=== PATIENT | female | born 1980 | race Caucasian/White ===

== ENCOUNTER 2017-07-21 15:56 | Emergency (ER) | payer MEDICAID, SELFPAY | END 2017-07-21 17:28 | disposition home or self-care (01) | PROVIDERS: Emergency Provider Nurse Practitioner; Family Provider Emergency Medicine; Visit Provider Nurse Practitioner | DX: H10.33 Unspecified acute conjunctivitis, bilateral (principal) | CPT/HCPCS: 99201 ==

== ENCOUNTER 2017-08-09 20:08 | Emergency (ER) | payer MEDICAID, SELFPAY ==
[2017-08-09 20:33] VITALS: BP 116/56; PULSE 91; RESP 18; TEMP 36.7; O2SAT 99; BMI 16.2
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
== END 2017-08-09 22:06 | disposition home or self-care (01) ==
PROVIDERS: Emergency Provider Emergency Medicine; Family Provider Emergency Medicine
DX: S01.111A Laceration without foreign body of right eyelid and periocular area, initial encounter (principal); W00.0XXA Fall on same level due to ice and snow, initial encounter; Y92.014 Private driveway to single-family (private) house as the place of occurrence of the external cause; F17.210 Nicotine dependence, cigarettes, uncomplicated
CPT/HCPCS: 12011; 99282

== ENCOUNTER 2020-02-12 20:01 | Emergency (ER) | payer MEDICAID, SELFPAY ==
[2020-02-12 20:17] VITALS: PULSE 96; RESP 16; TEMP 36.7; O2SAT 100; BMI 23.6
--- NOTE | 2020-02-12 20:35 | HMH.EDUTC ---
[facility] Disposition Clinical Impression: Acute gastroenteritis Disposition: Home, Self-Care Condition on Discharge: Good Instructions: Viral Gastroenteritis, DI for Viral Gastroenteritis -- Adult Additional Instructions: Drink plenty of fluids. Take tylenol or ibuprofen for pain or fever. Take the medications as directed. Follow up with your regular doctor. GO TO THE ER FOR ANY WORSENING SYMPTOMS Prescriptions: Ondansetron [Zofran 4mg ODT] 4 mg PO Q8HP PRN #20 tab.rapdis PRN Reason: Nausea Transmission Status: Pending to [facility] Referrals: Gabriele Kirkpatrick MD [Primary Care Provider] - Forms: Work/School Release Medical Decision Making - Medical Records Medical records reviewed: No: I reviewed the patient's medical records. - Diego Inquiry Pt receiving controlled substance: No Vital Signs: 02/12/20 20:17 Temperature 98.1 F Temperature Source Oral Pulse Rate [Right] 96 H Respiratory Rate 16 02 Sat by Pulse Oximetry 100 Oxygen Delivery Method Room Air [facility] HPI - General Stated complaint: throwing up, weak Time Seen by Provider: 02/12/20 20:20 Mode of Arrival: Ambulatory Source of Information: Patient Limitations: No Limitations Description of Symptoms (Recalled from Triage Doc. by RN): pt c/o n/v that has been ongoing for a couple of days. Feels like her abd is burning HEENT Symptoms (Recalled from RN notes): No Resp Symptoms (Recalled from RN notes): No Skin Symptoms (Recalled from RN notes): No MS Symptoms (Recalled from RN notes): No Functional Status (Recalled from RN notes): na - History of Present Illness Provider Complaint: She c/o n/v/d for the past 4 days or so. She denies any fever, cough or abdominal pain. She was around other people with a stomach virus before her symptoms started. - Related Data Previous Rx's Medication Instructions Recorded Ondansetron [Zofran 4mg ODT] 4 mg PO Q8HP PRN #20 tab.rapdis 02/12/20 Allergies Allergy/AdvReac Type Severity Reaction Status Date / Time No Known Allergies Allergy Verified 02/12/20 20:21 - Worker's Comp Is this a Worker's Comp case?: No [facility] History - Hepatitis A Screen Drug use history?: No High risk sexual behaviors?: No History of sexually transmitted infection?: No Currently employed?: Yes Childcare worker?: No Do you have indoor plumbing?: Yes Do you have electricity?: Yes Attestation statement:: This patient has been screened for Hepatitis A risk factors. I have reviewed the patient's past medical history: Yes - Social History Smoking Status: Current every day smoker Tobacco Type: cigarettes # Packs/Day (cigarettes): 1 Alcohol Intake: never Occupational Status: employed ROS Obtained: Yes All systems reviewed & no additional complaints - Constitutional Constitutional: Denies chills, Denies fever(s) - Eyes Eyes: Denies eye discharge - ENT Ears, Nose, Mouth, and Throat: Denies dizziness, Denies otalgia, Denies sore throat - Cardiovascular Cardiovascular: Denies chest pain - Respiratory Respiratory: No chest congestion, No cough, No dyspnea, No coughing up blood, No stridor, No wheezing - Gastrointestinal Gastrointestingal: Reports: as per HPI - Genitourinary Female Genitourinary: Denies dysuria, Denies urinary frequency, Denies urinary urgency - Musculoskeletal Musculoskeletal: Denies back pain - Integumentary/Breasts Skin/Breast: Denies rash Physical Exam - General General appearance: alert, in no apparent distress - Head Head exam: atraumatic, normocephalic, normal inspection - Eye Eye exam: Present: normal appearance, PERRL, EOMI - ENT ENT exam: Present: normal exam, normal oropharynx, mucous membranes moist, TM's normal bilaterally, normal external ear exam - Neck Neck exam: Present: normal inspection, full ROM, trachea midline. Absent: meningismus, lymphadenopathy - Chest Chest inspection: Present: normal inspection, symmetr
[2020-02-12 20:59] VITALS: BP 132/70; PULSE 74; RESP 16; TEMP 36.6; O2SAT 98
== END 2020-02-12 20:59 | disposition home or self-care (01) ==
PROVIDERS: Emergency Provider Nurse Practitioner Family; PCP Emergency Medicine
DX: K52.9 Noninfective gastroenteritis and colitis, unspecified (principal); F17.210 Nicotine dependence, cigarettes, uncomplicated
CPT/HCPCS: 99201

== ENCOUNTER 2020-03-31 16:25 | Emergency (ER) | payer MEDICAID, SELFPAY ==
[2020-03-31 16:26] VITALS: BP 125/74; PULSE 95; RESP 18; O2SAT 100; BMI 18.4
--- NOTE | 2020-03-31 16:43 | CT_ITS ---
PROCEDURE: CT ABDOMEN PELVIS W CON CLINICAL INDICATION: rlq pain Abdominal pain, nausea and vomiting, diarrhea, right lower quadrant pain COMPARISON: CT ABDPELW/O CT ABD PELVIS W/O CONTRAST from 09/07/2015 TECHNIQUE: IV Contrast: 75ML OPTIRAY 350 Oral Contrast None Axial images obtained with sagittal and coronal reformats. All CT scans at the facility use one or more dose reduction, viz: automated exposure control, ma/kV adjustment per patient size (including targeted exams where dose is matched to indication, i.e. head), or iterative reconstruction technique. FINDINGS: LOWER THORAX: No acute finding ABDOMEN & PELVIS: The liver, gallbladder, spleen, adrenal glands, and pancreas have an unremarkable appearance. There are punctate renal calculi in the lower pole on the left measuring 2 and 3 mm. No ureteral calculus. No hydronephrosis. No evidence of appendicitis. Multiple unopacified bowel loops in the abdomen or pelvis which could obscure or mimic pathology. If symptoms persist, consider repeat exam with IV and oral contrast.. No intestinal obstruction or free air. Prior hysterectomy. Spondylitic spondylolisthesis L5 on S1 grade 1. No acute bony findings. IMPRESSION: 1. Nonobstructing left nephrolithiasis. 2. Spondylitic spondylolisthesis of L5 on S1 Dictated by: Dino Taylor MD 04/01/2020 07:09 Dino Taylor MD in [place] 04/01/2020 07:09
[2020-03-31 16:51] LABS: Microscopic, Urine URINE MICROSCOPIC (MICROSCOPIC)
[2020-03-31 16:52] LABS: Appearance,Urine CLEAR (Clear); Bilirubin,Urine Negative (Negative); Blood, Urine Negative (Negative); Color,Urine YELLOW (Yellow); Glucose,Urine (UA) Negative (Negative); Ketones,Urine Negative (Negative); Leukocyte Esterase,Urine Negative (Negative); Nitrate,Urine Negative (Negative); PH,Urine 7.5 (5.0-8.5); Protein,Urine Negative (Negative)
[2020-03-31 17:02] LABS: Squamous Epithelial Cell,Urine Occasional #/hpf (0-5)
[2020-03-31 17:27] LABS: Basophils % 0.5 % (0.1-2.0); Chloride 107 mmol/L (98-107); Eosinophils # 0.2 K/mm3 (0.0-0.4); Eosinophils % 1.9 % (0.1-12.0); Hematocrit 41.5 % (37.0-47.0); Lymphocytes # 2.6 K/mm3 (0.7-4.5); Lymphocytes % 32.6 % (10-50); Mean Corpuscular HGB Conc 33.7 g/dL (31.8-35.4); Mean Corpuscular Hemoglobin 31.3 pg (27.0-31.2); Mean Platelet Volume 7.6 fl (7.4-10.4); Monocytes # 0.3 K/mm3 (0.1-1.0); Neutrophils % 61.1 % (37.0-80.0); Platelet Count 392 K/mm3 (142-424); Red Blood Count 4.46 M/mm3 (4.20-5.40); Red Cell Distribution Width 12.9 % (11.5-17.5); Sodium 142 mmol/L (136-145); White Blood Count 8.1 K/mm3 (4.8-10.8)
[2020-03-31 17:30] LABS: Alanine Aminotransferase 28 U/L (12-78); Albumin Level 4.5 g/dl (3.5-5.0); Albumin/Globulin Ratio 1.5 (1.1-1.8); Alkaline Phosphatase 81 U/L (38-126); Aspartate Amino Transferase 31 U/L (14-36); Bilirubin,Total 0.4 mg/dl (0.2-1.3); Blood Urea Nitrogen 9 mg/dl (7-17); Calcium 9.5 mg/dl (8.4-10.2); Carbon Dioxide 26 mmol/L (22.0-30.0); Creatinine Clearance Estimated 110 mL/min (50-200); Estimated Glomerular Filt Rate 110 ml/min (>60); GFR (African American) 133 ML/MIN (>60); Glucose 102 mg/dl (74-100); Total Protein,Serum 7.5 g/dl (6.3-8.2)
[2020-03-31 17:31] LABS: Lipase 50 U/L (23-300)
--- NOTE | 2020-03-31 18:27 | US_ITS ---
PROCEDURE: US TRANSVAGINAL CLINICAL INDICATION: rlq pain Intermittent right lower quadrant pain, right-sided pelvic pain COMPARISON: No exams were available for comparison FINDINGS: There has been a prior hysterectomy. The left ovary measures 3 x 1.4 cm and has an unremarkable appearance with blood flow noted and a few small follicles. The right ovary is 4 x 2 cm with blood flow noted with small follicles present the largest measuring approximately 2 cm. No cul-de-sac fluid apparent. IMPRESSION: Prior hysterectomy. Small bilateral ovarian follicles with simple cyst on the right measuring up to 2 cm Dictated by: Dino Taylor MD 04/01/2020 07:16 Dino Taylor MD in [place] 04/01/2020 07:16
--- NOTE | 2020-03-31 18:28 | HMH.EDABDPAI ---
ED Disposition Condition on Discharge: Undetermined - Critical Care Critical Care Time: No <Gregg Thornton - Last Filed: 03/31/20 20:04> Condition on Discharge: Fair Time of Disposition: 21:09 - Critical Care Critical Care Time: No <Abdirashid Burns - Last Filed: 03/31/20 21:14> Clinical Impression: Abdominal pain Qualifiers: Abdominal location: right lower quadrant Qualified Code(s): R10.31 - Right lower quadrant pain Disposition: Home, Self-Care Instructions: DI for Acute Abdomen Additional Instructions: Tests showed you have an ovarian cyst on the right. All other tests came back normal. We are sending you home with Zofran for nausea and Bentyl for abdominal cramps. Please follow up with your PCP Prescriptions: Dicyclomine HCl [Bentyl 10mg capsule] 10 mg PO TID PRN #10 cap PRN Reason: Cramping Transmission Status: Pending to [facility] Ondansetron [Zofran 4mg ODT] 4 mg PO NEEDED PRN 10 Days #14 tab.rapdis PRN Reason: Nausea Transmission Status: Pending to [facility] Referrals: Jose De La Vega APRN [Primary Care Provider] - Forms: Work/School Release Attestation: On 03/31/20, the high probability of a clinically significant, sudden or life threatening deterioration of the following system(s) required my full and direct attention, intervention and personal management. The time I documented below is in addition to time spent performing reported procedures but includes the following listed in this critical care notation. Medical Decision Making - Medical Records Medical records reviewed: Yes: I reviewed the patient's medical records. - Diego Sultana Pt receiving controlled substance: No - Lab Data Result diagrams: 03/31/20 17:13 03/31/20 17:13 <Gregg Thornton - Last Filed: 03/31/20 20:04> - Medical Records MR Comment: Took over patient from dr Gregg Thornton; Work up essentially came back negative except for ovarian cyst on the right side. We are discharging her home in stable condition with prescriptions for Zofran and Bentyl. - Diego Sultana Pt receiving controlled substance: No - Lab Data Result diagrams: 03/31/20 17:13 03/31/20 17:13 <Abdirashid Burns - Last Filed: 03/31/20 21:14> Vital Signs: 03/31/20 16:26 03/31/20 19:05 Temperature Source Oral Pulse Rate [Left Radial] 95 H 79 Respiratory Rate 18 18 Blood Pressure [Left Arm] 125/74 99/58 L Blood Pressure Mean [Left Arm] 91 71 Blood Pressure Source [Left Arm] Automatic Cuff Automatic Cuff Blood Pressure Position [Left Arm] Sitting Sitting 02 Sat by Pulse Oximetry 100 100 Oxygen Delivery Method Room Air - Lab Data Lab Results 03/31/20 16:45: Urine Color Yellow, Urine Appearance Clear, Urine pH 7.5, Ur Specific [place] 1.020, Urine Protein Negative, Urine Glucose (UA) Negative, Urine Ketones Negative, Urine Blood Negative, Urine Nitrate Negative, Urine Bilirubin Negative, Urine Urobilinogen 1.0, Ur Leukocyte Esterase Negative, Urine WBC 3-5, Ur Squamous Epith Cells Occasional 03/31/20 17:13: WBC 8.1, RBC 4.46, Hgb 14.0, Hct 41.5, MCV 93.0, MCH 31.3 H, MCHC 33.7, RDW 12.9, Plt Count 392, MPV 7.6, Neut % (Auto) 61.1, Lymph % (Auto) 32.6, [place] % (Auto) 4.0, Eos % (Auto) 1.9, Baso % (Auto) 0.5, Neut # (Auto) 5.0, Lymph # (Auto) 2.6, [place] # (Auto) 0.3, Eos # (Auto) 0.2, Baso # (Auto) 0.0 03/31/20 17:13: Sodium 142, Potassium 4.0, Chloride 107, Carbon Dioxide 26, Anion Gap 13.0, BUN 9, Creatinine 0.60, Estimated Creat Clear 110, Estimated GFR 110, Est GFR ( Amer) 133, Glucose 102 H, Calcium 9.5, Total Bilirubin 0.4, AST 31, ALT 28, Alkaline Phosphatase 81, Total Protein 7.5, Albumin 4.5, Globulin 3.0, Albumin/Globulin Ratio 1.5 03/31/20 17:13: Lipase 50 Orders (Tests/Meds): ED MEDICATIONS Discontinued Medications Generic Name Dose Route Start Last Admin Trade Name Freq PRN Reason Stop Dose Admin Ioversol 75 ml 03/31/20 17:48 03/31/20 17:48 Rad-Optiray 350 100ml Vial IV
--- NOTE | 2020-03-31 18:36 | PC.NURSE ---
notified rad of ultrasound order
--- NOTE | 2020-03-31 18:53 | PC.NURSE ---
ULTRASOUND CALLED IN FOR TRANSVAGINAL ULTRASOUND.
[2020-03-31 19:05] VITALS: BP 99/58; PULSE 79; RESP 18; O2SAT 100
--- NOTE | 2020-03-31 19:45 | PC.NURSE ---
report received from clinical support tech. given to
--- NOTE | 2020-03-31 19:47 | INFXCTL.NOTE ---
return from ultrasound. placed back on monitor
[2020-03-31 21:17] VITALS: BP 105/54; PULSE 89; RESP 16; TEMP 36.8; O2SAT 100
[2020-03-31 21:22] VITALS: BP 101/54; PULSE 89; RESP 18; O2SAT 98
== END 2020-03-31 21:47 | disposition home or self-care (01) ==
PROVIDERS: Emergency Provider Physician Assistant; PCP Nurse Practitioner Family
DX: R10.31 Right lower quadrant pain (principal); F17.210 Nicotine dependence, cigarettes, uncomplicated
CPT/HCPCS: 74177; 76830; 80053; 81001; 83690; 85025; 99284; Q9967

== ENCOUNTER → 2021-04-12 14:03 | Outpatient (CLI) | payer MEDICAID, SELFPAY ==
[2021-04-12 14:19] LABS: Basophils % 0.8 % (0.1-2.0); Eosinophils # 0.2 K/mm3 (0.0-0.4); Eosinophils % 3.5 % (0.1-12.0); Hematocrit 40.1 % (37.0-47.0); Hemoglobin 12.8 g/dL (12.2-16.2); Lymphocytes # 1.8 K/mm3 (0.7-4.5); Mean Corpuscular HGB Conc 31.9 g/dL (31.8-35.4); Mean Corpuscular Hemoglobin 30.6 pg (27.0-31.2); Mean Corpuscular Volume 95.8 fl (81-99); Mean Platelet Volume 8.6 fl (7.4-10.4); Monocytes # 0.2 K/mm3 (0.1-1.0); Monocytes % 5.5 % (1.7-9.3); Neutrophils # 2.2 K/mm3 (1.8-7.8); Neutrophils % 49.1 % (37.0-80.0); Platelet Count 358 K/mm3 (142-424); Red Blood Count 4.18 M/mm3 (4.20-5.40); Red Cell Distribution Width 13.7 % (11.5-17.5); White Blood Count 4.4 K/mm3 (4.8-10.8)
[2021-04-12 16:40] LABS: 25-OH Vitamin D, Total 18.9 ng/mL (30-100)
[2021-04-12 17:59] LABS: Chloride 103 mmol/L (98-107); Sodium 142 mmol/L (136-145)
[2021-04-12 18:00] LABS: Potassium 3.9 mmoL/L (3.5-5.1)
[2021-04-12 18:02] LABS: Alanine Aminotransferase 14 U/L (12-78); Albumin Level 4.5 g/dl (3.5-5.0); Albumin/Globulin Ratio 1.6 (1.1-1.8); Alkaline Phosphatase 93 U/L (38-126); Anion Gap 13.9 mEq/L (5-15); Aspartate Amino Transferase 28 U/L (14-36); Blood Urea Nitrogen 8 mg/dl (7-17); Carbon Dioxide 29 mmol/L (22.0-30.0); Cholesterol 170 mg/dl (140-200); Estimated Glomerular Filt Rate 135 ml/min (>60); GFR (African American) 164 ML/MIN (>60); Globulin 2.9 g/dL (1.3-3.2); Total Protein,Serum 7.4 g/dl (6.3-8.2); Triglycerides 120 mg/dl (30-150); VLDL Cholesterol 24 mg/dL (0-40)
[2021-04-12 18:03] LABS: Bilirubin,Total 0.1 mg/dl (0.2-1.3); Calcium 9.3 mg/dl (8.4-10.2); Chol/HDL Ratio 3.8 (1-3.5); Glucose 102 mg/dl (74-100); HDL Cholesterol 45 mg/dl (40-60)
[2021-04-12 18:14] LABS: Direct LDL Cholesterol 104.75 mg/dL (100-129)
[2021-04-12 18:20] LABS: T4 (Thyroxine) 11.1 ug/dl (5.53-11.0)
[2021-04-12 18:34] LABS: Thyroid Stimulating Hormone 0.93 uIU/mL (0.465-4.68)
[2021-04-14 08:15] LABS: Hep A Ab, IgM Negative (Negative); Hepatitis B Core Antibody IgM Negative (Negative); Hepatitis B Surface Antigen Negative (Negative); Hepatitis C Antibody >11.0 s/co ratio (0.0-0.9)
[2021-04-15 02:08] LABS: ALT (SGPT) P5P 12 IU/L (0-40); Alpha 2-Macroglobulins, Qn 214 mg/dL (110-276); Apolipoprotein A-1 112 mg/dL (116-209); Bilirubin, Total <0.1 mg/dL (0.0-1.2); Fibrosis Score 0.07 (0.00-0.21); GGT 25 IU/L (0-60); Haptoglobin 140 mg/dL (42-296); Necroinflammat Activity Grade A0-No activity (.); Necroinflammat Activity Score 0.03 (0.00-0.17)
== END ==
PROVIDERS: Visit Provider Nurse Practitioner Family
DX: R10.9 Unspecified abdominal pain (principal); B19.20 Unspecified viral hepatitis C without hepatic coma; K52.9 Noninfective gastroenteritis and colitis, unspecified
CPT/HCPCS: 80053; 80061; 80074; 81596; 82306; 84436; 84443; 85025; 87522; 87902

== ENCOUNTER → 2021-04-15 15:37 | Outpatient (CLI) | payer MEDICAID, SELFPAY | PROVIDERS: PCP Emergency Medicine; Visit Provider Nurse Practitioner | DX: Z20.822 Contact with and (suspected) exposure to COVID-19 (principal) | CPT/HCPCS: C9803; U0003; U0005 ==

== ENCOUNTER 2022-01-30 01:16 | Emergency (ER) | payer MEDICAID, SELFPAY ==
[2022-01-30 01:27] VITALS: BMI 14.8
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
[2022-01-30 01:29] VITALS: BP 110/60; PULSE 106; RESP 18; TEMP 36.8; O2SAT 100
[2022-01-30 01:32] LABS: POC Glucose,Bedside 128 (70-110)
[2022-01-30 01:36] LABS: Basophils # 0.2 K/mm3 (0-0.2); Basophils % 1.8 % (0.1-2.0); Eosinophils # 0.1 K/mm3 (0.0-0.4); Eosinophils % 1.1 % (0.1-12.0); Hematocrit 43.5 % (37.0-47.0); Hemoglobin 13.9 g/dL (12.2-16.2); Lymphocytes # 2.6 K/mm3 (0.7-4.5); Lymphocytes % 25.8 % (10-50); Mean Corpuscular HGB Conc 31.9 g/dL (31.8-35.4); Mean Corpuscular Volume 97.2 fl (81-99); Mean Platelet Volume 7.9 fl (7.4-10.4); Monocytes # 0.4 K/mm3 (0.1-1.0); Monocytes % 3.8 % (1.7-9.3); Neutrophils # 6.8 K/mm3 (1.8-7.8); Neutrophils % 67.5 % (37.0-80.0); Platelet Count 366 K/mm3 (142-424); Red Blood Count 4.47 M/mm3 (4.20-5.40); Red Cell Distribution Width 13.3 % (11.5-17.5)
[2022-01-30 01:42] LABS: Chloride 100 mmol/L (98-107); Potassium 3.5 mmoL/L (3.5-5.1); Sodium 140 mmol/L (136-145)
--- NOTE | 2022-01-30 01:42 | PC.NURSE ---
pt to radiology at this time
[2022-01-30 01:44] LABS: Blood Urea Nitrogen 7 mg/dl (7-17); Creatinine Clearance Estimated 104 mL/min (50-200); Estimated Glomerular Filt Rate 135 ml/min (>60); GFR (African American) 163 ML/MIN (>60)
[2022-01-30 01:45] LABS: Alanine Aminotransferase 22 U/L (12-78); Albumin Level 5.1 g/dl (3.5-5.0); Albumin/Globulin Ratio 1.6 (1.1-1.8); Alkaline Phosphatase 71 U/L (38-126); Anion Gap 14.5 mEq/L (5-15); Aspartate Amino Transferase 25 U/L (14-36); Bilirubin,Total 0.4 mg/dl (0.2-1.3); Calcium 9.8 mg/dl (8.4-10.2); Carbon Dioxide 29 mmol/L (22.0-30.0); Globulin 3.1 g/dL (1.3-3.2); Glucose 151 mg/dl (74-100); Total Protein,Serum 8.2 g/dl (6.3-8.2)
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
[2022-01-30 03:03] VITALS: BP 112/74; PULSE 100; RESP 18; TEMP 36.8; O2SAT 99
== END 2022-01-30 03:09 | disposition home or self-care (01) ==
PROVIDERS: Emergency Provider Emergency Medicine; PCP Emergency Medicine
DX: S06.0X0A Concussion without loss of consciousness, initial encounter (principal); S16.1XXA Strain of muscle, fascia and tendon at neck level, initial encounter; S41.112A Laceration without foreign body of left upper arm, initial encounter; V89.2XXA Person injured in unspecified motor-vehicle accident, traffic, initial encounter
CPT/HCPCS: 70450; 71045; 72125; 72170; 80053; 82962; 85025; 99285

== ENCOUNTER 2022-04-24 01:45 | Emergency (ER) | payer MEDICAID, SELFPAY ==
[2022-04-24 01:46] VITALS: BP 120/61; PULSE 106; RESP 16; TEMP 36.6; O2SAT 100; BMI 16.2
--- NOTE | 2022-04-24 02:09 | CT_ITS ---
PROCEDURE INFORMATION: Exam: CT Abdomen And Pelvis With Contrast Exam date and time: 04/24/2022 2:18 AM Age: 41 years old Clinical indication: Abdominal pain; Generalized; Prior surgery; Surgery date: 6+ months; Surgery type: Uterus removed; Additional info: Abd pain TECHNIQUE: Imaging protocol: Computed tomography of the abdomen and pelvis with contrast. Radiation optimization: All CT scans at this facility use at least one of these dose optimization techniques: automated exposure control; mA and/or kV adjustment per patient size (includes targeted exams where dose is matched to clinical indication); or iterative reconstruction. Contrast material: ISOVUE; Contrast volume: 75 ml; Contrast route: IV; COMPARISON: CT ABDOMEN PELVIS W CON 03/31/2020 5:26 PM FINDINGS: Lungs: Bibasilar dependent changes. Liver: Several too small to characterize hypodensities in the liver. Gallbladder and bile ducts: Mild intrahepatic biliary duct prominence. Common bile duct diameter is 8 mm. Pancreas: No ductal dilation. No peripancreatic inflammatory changes. Spleen: Unremarkable. Adrenal glands: No mass. Kidneys and ureters: Sub cm nonobstructing calculus in the left kidney. No hydronephrosis. Stomach and bowel: Large amount of stool in the colon. Low lying cecum containing stool, the appendix is not identified. Appendix: See Stomach and bowel finding. Intraperitoneal space: No free air. No ascites. Vasculature: No abdominal aortic aneurysm. Lymph nodes: No enlarged lymph nodes. Urinary bladder: Unremarkable as visualized. Reproductive: The uterus is absent. 4.0 cm cystic lesion in the left adnexa, nonspecific. Bones/joints: No suspicious osseous lesion. No acute fracture. Scattered degenerative changes. Soft tissues: No suspicious mass. Other findings: Limited study secondary to paucity of intra-abdominal fat. IMPRESSION: 1. 4.0 cm cystic lesion in the left adnexa, nonspecific. Correlate with ultrasound. 2. Low lying cecum containing stool, the appendix is not identified. If there is clinical concern for acute appendicitis consider repeat study with oral contrast. 3. Common bile duct diameter is 8 mm. If there is clinical or laboratory evidence of biliary obstructive process, ERCP or MRCP could further define.
--- NOTE | 2022-04-24 02:11 | PC.NURSE ---
Pt placed in a gown
[2022-04-24 02:14] LABS: Microscopic, Urine URINE MICROSCOPIC (MICROSCOPIC)
[2022-04-24 02:18] LABS: Appearance,Urine CLOUDY (Clear); Bilirubin,Urine Negative (Negative); Blood, Urine 1+ (Negative); Color,Urine YELLOW (Yellow); Glucose,Urine (UA) Negative (Negative); Ketones,Urine Negative (Negative); Leukocyte Esterase,Urine Negative (Negative); Nitrate,Urine Negative (Negative); Protein,Urine TRACE (Negative); Specific Gravity, Urine >= 1.030 (1.005-1.030)
[2022-04-24 02:18] LABS: Basophils # 0.2 K/mm3 (0-0.2); Basophils % 1.5 % (0.1-2.0); Eosinophils # 0.2 K/mm3 (0.0-0.4); Hematocrit 38.2 % (37.0-47.0); Hemoglobin 12.5 g/dL (12.2-16.2); Lymphocytes % 42.5 % (10-50); Mean Corpuscular HGB Conc 32.7 g/dL (31.8-35.4); Mean Corpuscular Hemoglobin 31.3 pg (27.0-31.2); Mean Corpuscular Volume 95.6 fl (81-99); Mean Platelet Volume 7.9 fl (7.4-10.4); Monocytes # 0.4 K/mm3 (0.1-1.0); Monocytes % 4.1 % (1.7-9.3); Neutrophils # 4.7 K/mm3 (1.8-7.8); Neutrophils % 49.8 % (37.0-80.0); Platelet Count 419 K/mm3 (142-424); Red Cell Distribution Width 12.8 % (11.5-17.5); White Blood Count 9.4 K/mm3 (4.8-10.8)
[2022-04-24 02:21] LABS: Alanine Aminotransferase 25 U/L (12-78); Albumin Level 4.4 g/dl (3.5-5.0); Albumin/Globulin Ratio 1.5 (1.1-1.8); Alkaline Phosphatase 100 U/L (38-126); Anion Gap 15.3 mEq/L (5-15); Aspartate Amino Transferase 32 U/L (14-36); Blood Urea Nitrogen 10 mg/dl (7-17); Calcium 8.9 mg/dl (8.4-10.2); Carbon Dioxide 29 mmol/L (22.0-30.0); Chloride 97 mmol/L (98-107); Creatinine Clearance Estimated 82 mL/min (50-200); Estimated Glomerular Filt Rate 91 ml/min (>60); GFR (African American) 111 ML/MIN (>60); Globulin 2.9 g/dL (1.3-3.2); Glucose 105 mg/dl (74-100); Potassium 3.3 mmoL/L (3.5-5.1); Sodium 138 mmol/L (136-145); Total Protein,Serum 7.3 g/dl (6.3-8.2)
[2022-04-24 02:23] LABS: Squamous Epithelial Cell,Urine 20-50 #/hpf (0-5)
[2022-04-24 02:23] LABS: Bilirubin,Total < 0.1 mg/dl (0.2-1.3)
[2022-04-24 03:30] VITALS: BP 105/70; PULSE 66; O2SAT 100
--- NOTE | 2022-04-24 03:42 | HMH.EDABDPAI ---
Discharge Plan Disposition Patient Disposition: Home, Self-Care Prescriptions Prescriptions: New ketorolac 10 mg tablet 10 mg PO Q6H PRN (Reason: pain) 2 Days Qty: 10 0RF No Action buprenorphine-naloxone 1 EACH film 1 each SL DAILY ketorolac 10 MG tablet 10 mg PO Q6HP MDD 40mg/day PRN (Reason: Moderate To Severe Pain) Qty: 8 0RF Rx Instructions: Therapy initiated with IV/IM dose Referrals Follow up/Referrals: Gabriele Kirkpatrick MD [Primary Care Provider] - See instructions Clinical Impressions Clinical Impression: Ovarian cyst Instructions Patient Instructions: DI for Acute Abdominal Pain Discharge ED Provider: Gabriele Kirkpatrick Abdominal Pain HPI General Chief Complaint: Abdominal Pain Stated Complaint: spot bleeding; pain; partial hysterectomy 2015 Time Seen by Provider: 04/24/22 02:00 Mode of Arrival: Ambulatory Source of Information: Patient and Relative Limitations: No Limitations Description of Symptoms (Recalled from ER Triage Doc. by RN): pt stated that she was at work tonight and had spotting the pt had a partial hysterectomy in 2015 and was concerned then she started having abdominal pain the had her doubled over. the pt states the pain is on the left side during inspection and palpation the pt stated pain in the rlq as well History of Present Illness HPI narrative: acute lt sided abd pain complaint: abdominal pain Onset (ago): hour(s) Consistency: intermittent Location: LLQ Severity: moderate Associated symptoms: denies other symptoms Related Data Home Medications Medication Instructions Recorded Confirmed buprenorphine 8 mg-naloxone 2 mg 1 each sublingual DAILY drug 01/30/22 01/30/22 sublingual film withdrawal Previous Rx's Medication Instructions Recorded ketorolac 10 mg tablet 10 mg PO Q6HP PRN Moderate To 01/30/22 Severe Pain #8 tabs ketorolac 10 mg tablet 10 mg PO Q6H PRN pain 2 days #10 04/24/22 tabs Allergies Allergy/AdvReac Type Severity Reaction Status Date / Time No Known Allergies Allergy Verified 04/12/21 10:29 [facility] PFS Social History Smoking Status: Current every day smoker tobacco type: cigarettes packs per day: 1 alcohol intake: never current occupational status: employed Travel in the last 8 weeks: None ROS Obtained: Yes All systems reviewed & no additional complaints except as documented Physical Exam General General appearance: alert Head Head exam: normocephalic Eye Eye exam: Present PERRL and EOMI ENT ENT exam: Present mucous membranes moist Neck Neck exam: Present trachea midline Respiratory Respiratory exam: Present normal lung sounds bilaterally; Absent respiratory distress Cardiovascular Cardiovascular exam: Present regular rate Abdominal Exam Abdominal exam: Present soft Abdominal tenderness: Present LLQ and moderate Extremities Exam Extremities exam: Present full ROM Neurological Exam Neurological exam: Present alert, oriented X3 and CN II-XII intact Psychiatric Psychiatric exam: Present normal affect Skin Skin exam: Absent rash Medical Decision Making Medical Records Medical records reviewed: Yes I reviewed the patient's medical records. Diego Inquiry Pt receiving controlled substance: No Vital Signs: 04/24/22 01:46 Temperature 97.9 F Temperature Source Oral Pulse Rate [Left] 106 H Respiratory Rate 16 Blood Pressure [Right Arm] 120/61 Blood Pressure Mean [Right Arm] 80 02 Sat by Pulse Oximetry 100 Lab Data Lab results reviewed: Yes I reviewed the patient's lab results. Lab Results 04/24/22 01:58: Urine Color Yellow, Urine Appearance Cloudy, Urine pH 6.0, Ur Specific [place] >= 1.030, Urine Protein Trace, Urine Glucose (UA) Negative, Urine Ketones Negative, Urine Blood 1+, Urine Nitrate Negative, Urine Bilirubin Negative, Urine Urobilinogen 1.0, Ur Leukocyte Esterase Negative, Urine RBC 5-10, Ur Squamous Epith Cells 20-50 04/24/22 02:05: WBC 9.4, RBC 4.00 L, Hgb
[2022-04-24 04:05] VITALS: BP 119/66; PULSE 72; RESP 16; TEMP 36.6; O2SAT 100
== END 2022-04-24 04:27 | disposition home or self-care (01) ==
PROVIDERS: Emergency Provider Emergency Medicine; PCP Emergency Medicine
DX: R10.32 Left lower quadrant pain (principal); F17.210 Nicotine dependence, cigarettes, uncomplicated
CPT/HCPCS: 74177; 80053; 81001; 85025; 96374; 99285; Q9967

== ENCOUNTER 2023-04-18 16:41 | Emergency (ER) | payer MEDICAID, SELFPAY ==
[2023-04-18 16:50] VITALS: BP 127/67; PULSE 76; RESP 18; TEMP 36.4; O2SAT 100; BMI 18.4
--- NOTE | 2023-04-18 17:01 | EXP.UTC ---
Discharge Plan Disposition Patient Disposition: Home, Self-Care Condition: Good Prescriptions Prescriptions: No Action Vivitrol 380 mg suspension,extended rel recon 380 mg IM QMONTH naloxone 4 mg/actuation spray,non-aerosol 1 spray intranasal ONCE buspirone 10 mg tablet 10 mg PO DAILY Qty: 30 1RF hydroxyzine pamoate 50 mg capsule 50 mg PO HS Qty: 30 1RF propranolol 10 mg tablet 10 mg PO DAILY Qty: 30 1RF ropinirole 1 mg tablet 1 mg PO DAILY Qty: 30 1RF trazodone 150 mg tablet 150 mg PO HS Qty: 30 1RF Referrals Follow up/Referrals: Gabriele Kirkpatrick MD [Primary Care Provider] - See instructions Activity Restrictions/Add. Instructions Additional Instructions/Restrictions: mae swab was sent to lab, call tomorrow for results. self isolate until test results are known to be negative No sign of a bacterial infection. Likely viral. Viruses can take 7-14 days to run their course. Nasal saline and bulb syringe or nose Susy to remove nasal drainage to help with nasal congestion. Hard to eat, drink, sleep with nasal congestion so important to keep this cleaned out. Monitor temp. Tylenol or Motrin as needed for pain or fever Encourage fluids, water, Gatorade, Powerade, Pedialyte if infant/toddler/child Warm salt water gargles Warm fluids Sore throat lozenges Sleep elevated Humidifier/vaporizer Follow-up immediately for new or worsening symptoms or no noticeable improvement over the next 48-72 hours. Clinical Impressions Clinical Impression: Upper respiratory infection, viral Instructions Patient Instructions: DI for Viral Upper Respiratory Infection -- Adult Discharge ED Provider: Ceferino (RUST)Jose [facility] HPI General Stated complaint: sore throat, fever, soa, congestion Mode of Arrival: Ambulatory Source of Information: Patient Limitations: No Limitations Time Seen by Provider: 04/18/23 17:01 Description of Symptoms (Recalled from Triage Doc. by RN): mae garcia Started feeling bad last night. Her symptoms are cough, SOB, fever, IBARRA, and body aches HEENT Symptoms (Recalled from RN notes): Yes Resp Symptoms (Recalled from RN notes): No Skin Symptoms (Recalled from RN notes): No MS Symptoms (Recalled from RN notes): No Functional Status (Recalled from RN notes): n/a History of Present Illness Provider Complaint: 42 yr old female presents for cough, SOB, fever, IBARRA, and body aches covid exposure. Started feeling bad last night. Related Data Home Medications Medication Instructions Recorded Confirmed naloxone 4 mg/actuation nasal spray 1 spray intranasal ONCE 03/12/23 03/12/23 naltrexone microspheres 380 mg 380 mg IM QMONTH 03/12/23 03/12/23 intramuscular suspension,extended release (Vivitrol) buspirone 10 mg tablet 10 mg PO DAILY . 04/18/23 04/18/23 hydroxyzine pamoate 50 mg capsule 50 mg PO HS . 04/18/23 04/18/23 propranolol 10 mg tablet 10 mg PO DAILY . 04/18/23 04/18/23 ropinirole 1 mg tablet 1 mg PO DAILY . 04/18/23 04/18/23 trazodone 150 mg tablet 150 mg PO HS . 04/18/23 04/18/23 Allergies Allergy/AdvReac Type Severity Reaction Status Date / Time No Known Allergies Allergy Verified 04/18/23 16:59 Worker's Comp Is this a Worker's Comp case?: No [facility] Disclaimer: The information contained in this section may have been updated after the patient was seen, as this information can be updated by other users. 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
[2023-04-18 17:18] VITALS: BP 127/67; PULSE 76; RESP 18; TEMP 36.4; O2SAT 100
== END 2023-04-18 17:18 | disposition home or self-care (01) ==
PROVIDERS: Emergency Provider Nurse Practitioner Family; PCP Emergency Medicine
DX: J06.9 Acute upper respiratory infection, unspecified (principal); B34.9 Viral infection, unspecified; F17.210 Nicotine dependence, cigarettes, uncomplicated; F32.A Depression, unspecified
CPT/HCPCS: 87635; 99203; 99212; G0463

== ENCOUNTER 2023-05-21 22:56 | Emergency (ER) | payer OTHER, MEDICAID, SELFPAY ==
[2023-05-21 22:57] VITALS: BP 127/73; PULSE 103; RESP 16; TEMP 36.7; O2SAT 99; BMI 18.4
--- NOTE | 2023-05-21 23:08 | HMH.EDGENADL ---
Discharge Plan Disposition Patient Disposition: Home, Self-Care Chief Complaint: Wound/Laceration Prescriptions Prescriptions: No Action Vivitrol 380 mg suspension,extended rel recon 380 mg IM QMONTH naloxone 4 mg/actuation spray,non-aerosol 1 spray intranasal ONCE ropinirole 1 mg tablet 1 mg PO DAILY hydroxyzine pamoate 50 mg capsule 50 mg PO HS propranolol 10 mg tablet 10 mg PO DAILY trazodone 150 mg tablet 150 mg PO HS buspirone 10 mg tablet 10 mg PO DAILY Referrals Follow up/Referrals: Gabriele Kirkpatrick MD [Primary Care Provider] - See instructions Activity Restrictions/Add. Instructions Additional Instructions/Restrictions: Call your family doctor to establish care for this visit to the emergency department and schedule follow-up within 48 hours to ensure improvement. If you have any worsening of your condition or any other concerning signs or symptoms, return to the emergency department or your primary care doctor for further evaluation. Take Tylenol 1000 mg every 6 hours (4 times daily) and ibuprofen 400 mg every 6 hours (4 times daily) as needed with food and water to prevent GI upset and kidney damage. Clinical Impressions Clinical Impression: Laceration Instructions Patient Instructions: DI for Laceration Repair Discharge ED Provider: Ibrahima Zamora General Adult HPI General Chief complaint: Wound/Laceration Stated complaint: WC10/30 Middle finger LT hand lac Time Seen by Provider: 05/21/23 23:05 Mode of Arrival: Ambulatory Source of Information: Patient Limitations: No Limitations Description of Symptoms (Recalled from ER Triage Doc. by RN): pt states was wiping down the wall and something caught her lt middle finger. pt has laceraction to lt middle finger. History of Present Illness HPI narrative: 42-year-old female who is otherwise healthy presenting with left middle finger injury. Patient was cleaning a wall when she cut her hand on sheet metal. Does not think there is a foreign body. Last tetanus unknown. Patient not having pain, but family convinced her to come to the emergency department due to need for tetanus update and make sure there is no underlying complication. Related Data Home Medications Medication Instructions Recorded Confirmed naloxone 4 mg/actuation nasal spray 1 spray intranasal ONCE 03/12/23 05/21/23 naltrexone microspheres 380 mg 380 mg IM QMONTH 03/12/23 05/21/23 intramuscular suspension,extended release (Vivitrol) buspirone 10 mg tablet 10 mg PO DAILY . 04/18/23 05/21/23 hydroxyzine pamoate 50 mg capsule 50 mg PO HS . 04/18/23 05/21/23 propranolol 10 mg tablet 10 mg PO DAILY . 04/18/23 05/21/23 ropinirole 1 mg tablet 1 mg PO DAILY . 04/18/23 05/21/23 trazodone 150 mg tablet 150 mg PO HS . 04/18/23 05/21/23 Allergies Allergy/AdvReac Type Severity Reaction Status Date / Time No Known Allergies Allergy Verified 04/18/23 16:59 [facility] Disclaimer: The information contained in this section may have been updated after the patient was seen, as this information can be updated by other users. 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 (Reviewed 04/18/23 @ 17:13 by Jose De La Vega ([facility]), COTTON PRESSER) Depression Surgical History (Reviewed 04/18/23 @ 17:13 by Jose De La Vega ([facility]), COTTON PRESSER) H/O abdominal hysterectomy Family History (Reviewed 04/18/23 @ 17:13 by Jose De La Vega ([facility]), COTTON PRESSER) Substance abuse Alcoholism Heart attack Hypertension Thyroid disorder Stroke Social History (Reviewed 04/18/23 @ 17:13 by Jose De La Vega ([facility]), COTTON PRESSER) Smoking Status: Current every day smoker tobacco type: cigarettes packs per day: 1 alcohol intake: former substance use type: former substance user, opiates and IV drugs current occupational status: employed Travel in the last 8 weeks: None ROS Obtained: Yes All systems reviewed & no additional complaints except as documented Physical Exam General General appearance: alert and in no
--- NOTE | 2023-05-21 23:12 | XR_ITS ---
PROCEDURE INFORMATION: Exam: XR Left Hand Exam date and time: 05/21/2023 11:39 PM Age: 42 years old Clinical indication: Injury or trauma; Other: Cut; Work related; Laceration; Left; Middle finger; Additional info: R/O fb left distal middle finger TECHNIQUE: Imaging protocol: Radiologic exam of the left hand. Views: 1 or 2 views. COMPARISON: No relevant prior studies available. FINDINGS: Bones/joints: Normal. Soft tissues: No radiopaque foreign bodies. IMPRESSION: No radiopaque foreign bodies.
[2023-05-22 00:06] VITALS: BP 116/70; PULSE 75; RESP 16; TEMP 36.7; O2SAT 100
== END 2023-05-22 00:09 | disposition home or self-care (01) ==
PROVIDERS: Emergency Provider Emergency Medicine; PCP Emergency Medicine
DX: S61.213A Laceration without foreign body of left middle finger without damage to nail, initial encounter (principal); F17.210 Nicotine dependence, cigarettes, uncomplicated; F32.A Depression, unspecified; Z23 Encounter for immunization; W26.8XXA Contact with other sharp object(s), not elsewhere classified, initial encounter
CPT/HCPCS: 73120; 90714; 96372; 99283

== ENCOUNTER 2023-10-31 17:09 | Emergency (ER) | payer MEDICAID, SELFPAY ==
[2023-10-31 17:10] VITALS: BP 130/57; PULSE 83; RESP 18; TEMP 36.6; O2SAT 100; BMI 19.9
--- NOTE | 2023-10-31 17:40 | PC.NURSE ---
Dr. Boucher at bedside
--- NOTE | 2023-10-31 17:44 | HMH.EDGENADL ---
Discharge Plan Disposition Patient Disposition: Home, Self-Care Chief Complaint: Extremity Problem,Nontraumatic Prescriptions Prescriptions: No Action Vivitrol 380 mg suspension,extended rel recon 380 mg IM QMONTH naloxone 4 mg/actuation spray,non-aerosol 1 spray intranasal ONCE ropinirole 1 mg tablet 1 mg PO DAILY hydroxyzine pamoate 50 mg capsule 50 mg PO HS propranolol 10 mg tablet 10 mg PO DAILY trazodone 150 mg tablet 150 mg PO HS buspirone 10 mg tablet 10 mg PO DAILY Referrals Follow up/Referrals: Karan Banks DO [Primary Care Provider] - See instructions Activity Restrictions/Add. Instructions Additional Instructions/Restrictions: At this time it was felt you are safe to be discharged home. If new or worsening symptoms please do not hesitate to return the emergency department. Please obtain compression stockings as discussed from [facility] in [place]. Please follow-up with your family doctor next week as discussed. Clinical Impressions Clinical Impression: Venous insufficiency Discharge ED Provider: Samson Boucher General Adult HPI <MAXWELL Galarza - Last Filed: 10/31/23 17:44> General Chief complaint: Extremity Problem,Nontraumatic Stated complaint: right leg swelling Time Seen by Provider: 10/31/23 17:22 Mode of Arrival: Ambulatory Source of Information: Patient Limitations: No Limitations Description of Symptoms (Recalled from ER Triage Doc. by RN): c/o bilateral lower leg pain with redness and redness that started last night. She seen after she got off work last night. increases with pain when walking. Related Data Home Medications Medication Instructions Recorded Confirmed naloxone 4 mg/actuation nasal spray 1 spray intranasal ONCE 03/12/23 05/21/23 naltrexone microspheres 380 mg 380 mg IM QMONTH 03/12/23 05/21/23 intramuscular suspension,extended release (Vivitrol) buspirone 10 mg tablet 10 mg PO DAILY . 04/18/23 05/21/23 hydroxyzine pamoate 50 mg capsule 50 mg PO HS . 04/18/23 05/21/23 propranolol 10 mg tablet 10 mg PO DAILY . 04/18/23 05/21/23 ropinirole 1 mg tablet 1 mg PO DAILY . 04/18/23 05/21/23 trazodone 150 mg tablet 150 mg PO HS . 04/18/23 05/21/23 Allergies Allergy/AdvReac Type Severity Reaction Status Date / Time No Known Allergies Allergy Verified 04/18/23 16:59 <Samson Boucher MD - Last Filed: 10/31/23 17:52> History of Present Illness HPI narrative: Patient is a 42-year-old female with past medical history of varicose veins bilateral lower extremities who presents emergency department for evaluation of painless intermittent swelling of her feet. It is worse with long periods of standing, subacute in nature. There is mild erythema over the medial aspect of her bilateral distal shins just above her ankles. At the behest of her family she presents here for continued evaluation. No shortness of breath reported, no chest pain reported, no other acute complaints at this time. Symptoms and swelling improved with rest. PFS <MAXWELL Galarza - Last Filed: 10/31/23 17:44> [facility] Disclaimer: The information contained in this section may have been updated after the patient was seen, as this information can be updated by other users. 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) Smoking Status: Current every day smoker tobacco type: cigarettes packs per day: 1 alcohol intake: former substance use type: former substance user, opiates and IV drugs current occupational status: employed Travel in the last 8 weeks: None <MAXWELL Galarza - Last Filed: 10/31/23 17:44> ROS Obtained: Yes Systems reviewed as appropriate & no additional complaints except as documented Physical Exam <MAXWELL Galarza - Last Filed: 10/31/23 17:44> General General appearance: alert and in no apparent distress Head Head exam: atraumatic and normal inspection Eye Eye exam: Present normal appearance, PERRL and EOMI ENT ENT exam: Present normal exam, normal oropharynx and mucous membranes moist Neck Neck exam: Present normal inspection, full ROM and trachea midline; Absent lymphadenopathy Chest Chest inspection: Present normal inspection and symmetric chest wall rise Respiratory Respiratory exam: Present normal lung sounds bilaterally; Absent accessory muscle use Cardiovascular Cardiovascular exam: Present regular rate, normal rhythm, normal heart sounds, +S1 and +S2 Abdominal Exam Abdominal exam: Present soft and normal bowel sounds; Absent tenderness, guarding or rebound Extremities Exam Extremities exam: Present normal inspection and full ROM Neurological Exam Neurological exam: Present alert, oriented X3 and CN II-XII intact Psychiatric Psychiatric exam: Present normal affect and normal mood Skin Skin exam: Present warm, dry and normal color Lymphatic Lymphatic Findings: no adenopathy <Samson Boucher MD - Last Filed: 10/31/23 17:52> General General appearance: alert and in no apparent distress Head Head exam: atraumatic and normocephalic Eye Eye exam: Present PERRL and EOMI ENT ENT exam: Present mucous membranes moist Neck Neck exam: Present normal inspection Chest Chest inspection: Present normal inspection and symmetric chest wall rise Respiratory Respiratory exam: Present normal lung sounds bilaterally; Absent respiratory distress Cardiovascular Cardiovascular exam: Present regular rate and normal rhythm Abdominal Exam Abdominal exam: Present soft Extremities Exam Extremities exam: Present other (Slight pitting edema bilateral lower extremities mid smith and below, varicose veins, mild erythema bilateral distal shins just above the ankles. No proximal limb swelling or discoloration.) Neurological Exam Neurological exam: Present alert Psychiatric Psychiatric exam: Present normal affect Skin Skin exam: Present warm and dry Medical Decision Making <MAXWELL Galarza - Last Filed: 10/31/23 17:44> Vital Signs: 10/31/23 17:10 Temperature 97.9 F Temperature Source Oral Pulse Rate [Left Radial] 83 Respiratory Rate 18 Blood Pressure [Right Arm] 130/57 L Blood Pressure Mean [Right Arm] 81 Blood Pressure Source [Right Arm] Automatic Cuff Blood Pressure Position [Right Arm] Sitting 02 Sat by Pulse Oximetry 100 Medical Decision Narrative: In summary patient is a [age, sex] who presents to the emergency department for evaluation of [complaint]. Patient is [hemodynamically stable/unstable] upon arrival, [febrile/afebrile]. [Unremarkable physical exam, nonfocal exam versus focal remarkable exam]. Differential diagnosis includes [DDx]. Initial workup will be conducted with [hematologic labs, imaging, respiratory swab, describe workup]. Initial interventions include [crystalloid bolus, medications, p.o. challenge, etc.] initial workup reviewed by me [hematologic labs are remarkable for... Imaging remarkable for... Urinalysis remarkable for]. Upon repeat evaluation [patient had acceptable resolution of symptoms, had persistent pain for which additional interventions were conducted (describe interventions), tolerated p.o., was ambulatory, etc.]. Given this [patient is appropriate for discharge at this time and will be discharged with a prescription for... The case was discussed with hospital medicine regarding management and they will admit the patient their service for continued evaluation at this time... Etc.] Places where you can increase complexity: I informally interpreted the patient's chest x-ray or CT read and is remarkable for... Documenting what the surveillance monitor shows with rate and rhythm Consideration of test but deferring. Ex: I considered chest x-ray on this patient however given that they have no oxygen requirement and are clear to auscultation all lung carmona will be deferred. Social determinants of health: Given that patient is undomiciled increases complexity. Given that patient has polysubstance abuse compounds all aspects of care <Samson Boucher MD - Last Filed: 10/31/23 17:52> Diego Inquiry Pt receiving controlled substance: No Vital Signs: 10/31/23 17:10 Temperature 97.9 F Temperature Source Oral Pulse Rate [Left Radial] 83 Respiratory Rate 18 Blood Pressure [Right Arm] 130/57 L Blood Pressure Mean [Right Arm] 81 Blood Pressure Source [Right Arm] Automatic Cuff Blood Pressure Position [Right Arm] Sitting 02 Sat by Pulse Oximetry 100 Medical Decision Narrative: In summary patient is a 42-year-old female past medical history described above presents emergency department for evaluation of lower extremity swelling. History and physical consistent with venous insufficiency, this is likely stressing the skin on the medial aspect of her her shins just above her ankles. No ulceration. Given this and the fact that patient has no proximal limb swelling, no shortness of breath, no discoloration of the proximal legs would make proximal DVT bilaterally extremely unlikely. Given bilateral lower extremity involvement, mild erythema, bilateral infection is also very unlikely. Given this patient will undergo empiric compression trial will follow-up next week with her PCP. Critical Care <Samson Boucher MD - Last Filed: 10/31/23 17:52> Critical Care Time Critical Care Time: No
[2023-10-31 17:56] VITALS: BP 108/61; PULSE 72; RESP 17; TEMP 36.6; O2SAT 99
== END 2023-10-31 17:58 | disposition home or self-care (01) ==
PROVIDERS: Emergency Provider Emergency Medicine; PCP Internal Medicine
DX: I87.2 Venous insufficiency (chronic) (peripheral) (principal); R22.43 Localized swelling, mass and lump, lower limb, bilateral; F17.210 Nicotine dependence, cigarettes, uncomplicated
CPT/HCPCS: 99283

== ENCOUNTER 2023-11-08 18:34 | Outpatient (CLI) | payer MEDICAID, SELFPAY ==
[2023-11-08 19:03] LABS: Basophils # 0.1 K/mm3 (0-0.2); Basophils % 0.7 % (0.1-2.0); Eosinophils # 0.2 K/mm3 (0.0-0.4); Eosinophils % 2.4 % (0.1-12.0); Hematocrit 39.6 % (37.0-47.0); Hemoglobin 12.8 g/dL (12.2-16.2); Lymphocytes # 2.4 K/mm3 (0.7-4.5); Lymphocytes % 36.1 % (10-50); Mean Corpuscular HGB Conc 32.2 g/dL (31.8-35.4); Mean Corpuscular Hemoglobin 31.4 pg (27.0-31.2); Mean Corpuscular Volume 97.4 fl (81-99); Mean Platelet Volume 10.5 fl (7.4-10.4); Monocytes # 0.3 K/mm3 (0.1-1.0); Monocytes % 4.7 % (1.7-9.3); Neutrophils # 3.7 K/mm3 (1.8-7.8); Platelet Count 260 K/mm3 (142-424); Red Blood Count 4.07 M/mm3 (4.20-5.40); White Blood Count 6.6 K/mm3 (4.8-10.8)
[2023-11-08 19:35] LABS: Alanine Aminotransferase 16 U/L (12-78); Albumin Level 4.8 g/dl (3.5-5.0); Albumin/Globulin Ratio 2.2 (1.1-1.8); Alkaline Phosphatase 74 U/L (38-126); Anion Gap 13.1 mEq/L (5-15); Aspartate Amino Transferase 26 U/L (14-36); Bilirubin,Total 0.3 mg/dl (0.2-1.3); Blood Urea Nitrogen 13 mg/dl (7-17); Calcium 9.5 mg/dl (8.4-10.2); Carbon Dioxide 27 mmol/L (22.0-30.0); Chloride 106 mmol/L (98-107); Chol/HDL Ratio 3.4 (1-3.5); Cholesterol 191 mg/dl (140-200); Estimated Glomerular Filt Rate 109 ml/min (>60); GFR (African American) 131 ML/MIN (>60); Globulin 2.2 g/dL (1.3-3.2); Glucose 69 mg/dl (74-100); HDL Cholesterol 56 mg/dl (40-60); Potassium 4.1 mmoL/L (3.5-5.1); Sodium 142 mmol/L (136-145); Triglycerides 62 mg/dl (30-150); VLDL Cholesterol 12 mg/dL (0-40)
[2023-11-08 19:40] LABS: Hemoglobin A1C 5.2 % (4.0-6.0)
[2023-11-08 19:46] LABS: Direct LDL Cholesterol 94.87 mg/dL (100-129)
[2023-11-08 19:52] LABS: 25-OH Vitamin D, Total 24.7 ng/mL (30-100)
[2023-11-08 20:05] LABS: Thyroid Stimulating Hormone 1.32 uIU/mL (0.465-4.68)
[2023-11-10 06:14] LABS: HIV Screen 4th Generation wRfx Non Reactive (Non Reactive)
[2023-11-10 15:50] LABS: Hep A Ab, Total Positive (Negative); Hep B Core Ab, Total Positive (Negative); Hep B Surface Ab, Qual Non Reactive (.)
[2023-11-15 08:34] LABS: Hepatitis B Surface Antigen Negative; Hepatitis C Antibody Reactive
[2023-11-15 08:35] LABS: Fibrosis Score 0.11; Fibrosis Stage F0-NO FIBROSIS; Necroinflammat Activity Grade A0- NO ACTIVITY; Necroinflammat Activity Score 0.03
[2023-11-15 08:37] LABS: Alpha 2-Macroglobulins, Qn 227; Apolipoprotein A-1 149; Haptoglobin 98
[2023-11-15 08:38] LABS: ALT (SGPT) P5P 13; Bilirubin, Total 0.2; GGT 23
== END 2023-11-08 23:59 | disposition home or self-care (01) ==
LOC: LAB.DROPOF 18:35
PROVIDERS: PCP Internal Medicine; Visit Provider Internal Medicine
DX: R53.83 Other fatigue (principal); B34.9 Viral infection, unspecified; F11.21 Opioid dependence, in remission; E55.9 Vitamin D deficiency, unspecified; Z11.4 Encounter for screening for human immunodeficiency virus [HIV]; R76.8 Other specified abnormal immunological findings in serum
CPT/HCPCS: 80053; 80061; 81596; 82306; 83036; 84443; 85025; 86703; 86704; 86706; 86708; 87340; 87380; 87522; 87902; G0432

== ENCOUNTER 2023-11-19 14:15 | Outpatient (CLI) | payer MEDICAID, SELFPAY ==
--- NOTE | 2023-11-19 14:15 | CA_ITS ---
FINAL REPORT CLINICAL HISTORY: EDEMA,REDNESS BILATERAL ANKLES COMPARISON: None FINDINGS: Multiple transverse and longitudinal scans were performed of the femoral popliteal deep venous system, with augmentation and compression maneuvers. Normal phasic flow was noted in the visualized deep venous system. No intraluminal increased echogenicity is noted to suggest thrombus. There is normal compression and augmentation of the venous structures. No abnormal venous collaterals are seen. IMPRESSION: No evidence of deep venous thrombosis of the bilateral lower extremities. Reviewed, Interpreted and Dictated by Lexi Crowe MD Transcribed by Natacha Rene Authenticated and [facility]
== END 2023-11-19 23:59 | disposition home or self-care (01) ==
LOC: RT 14:15
PROVIDERS: PCP Internal Medicine; Visit Provider Internal Medicine
DX: R22.43 Localized swelling, mass and lump, lower limb, bilateral (principal)
CPT/HCPCS: 93970

== ENCOUNTER 2023-11-20 09:17 | Outpatient (CLI) | payer MEDICAID, SELFPAY ==
--- NOTE | 2023-11-20 09:27 | XR_ITS ---
FINAL REPORT CLINICAL HISTORY: Shortness of breath, smoker COMPARISON: 01/30/2022 FINDINGS: No acute pulmonary density is evident. There is no evidence of effusion or other pleural disease. The mediastinum has a normal appearance. The cardiac silhouette is unremarkable. IMPRESSION: Unremarkable chest exam. Reviewed, Interpreted and Dictated by Lexi Crowe MD Transcribed by Danika Montero Authenticated and [facility]
== END 2023-11-20 23:59 | disposition home or self-care (01) ==
LOC: RAD 09:18
PROVIDERS: PCP Internal Medicine; Visit Provider Internal Medicine
DX: R01.1 Cardiac murmur, unspecified (principal); I20.89 Other forms of angina pectoris; R09.89 Other specified symptoms and signs involving the circulatory and respiratory systems; R06.00 Dyspnea, unspecified; Z72.0 Tobacco use
CPT/HCPCS: 71046

== ENCOUNTER 2023-11-28 13:38 | Outpatient (CLI) | payer MEDICAID, SELFPAY ==
--- NOTE | 2023-11-28 13:38 | CA_ITS ---
FINAL REPORT TECHNIQUE: Color Doppler, duplex Doppler and norris scale sonography of the bilateral neck vasculature was performed. Velocities were measured in the carotid arteries. Stenosis evaluation based on velocity criteria. CLINICAL HISTORY: carotid bruit, smoker COMPARISON: None FINDINGS: The peak systolic velocity of the right common carotid artery is 119 cm/sec and internal carotid artery 100 cm/sec. The diastolic velocity in the internal carotid artery is 40 cm/sec. The ICA/CCA ratio is 0.85. Visually, a moderate amount of plaque is seen.. These findings are consistent with less than 50% stenosis. The external carotid artery is patent. The right vertebral artery is patent with antegrade flow. The peak systolic velocity of the left common carotid artery is 95 cm/sec and internal carotid artery 136 cm/sec. The diastolic velocity in the internal carotid artery is 47 cm/sec. The ICA/CCA ratio is 1.4. Visually, a small amount of plaque is seen. These findings are consistent with less than 50% stenosis. The external carotid artery is patent. The left vertebral artery is patent with antegrade flow. IMPRESSION: No evidence of significant carotid stenosis, with moderate right carotid plaque and mild left carotid plaque. Bilateral patent vertebral arteries. If indicated, CTA or MRA could further evaluate. Reviewed, Interpreted and Dictated by True Ruiz III, MD Transcribed by Natacha Rene Authenticated and [facility]
--- NOTE | 2023-11-28 13:38 | CA_ITS ---
APPROVED REPORT Exam: Exercise Treadmill Technologist: Yris Dugan Ht: 5 ft 9 in Wt: 132 lbs BSA: 1.73 m2 HR: 72 bpm BP: 107/55 mmHg Rhythm: NSR Indications: Dyspnea 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 Medications: Buspirone,,,,, Stress Test Details Test: Darío HR Resting HR: 76 bpm Max Heart Rate (APMHR): 176 bpm Max HR Achieved: 157 bpm Target HR (85% APMHR): 150 bpm % of APMHR: 89 Recovery HR: 108 bpm HR response to stress: Normal HR response to stress BP Resting BP: 107.0/55.0 mmHg Max BP: 154.0/64.0 mmHg Recovery BP: 113.0/62.0 mmHg BP response to stress: Normal blood pressure response to stress. ECG Resting ECG: Normal sinus rhythm, PVCs Stress ECG: < 0.5mm upsloping ST depression Arrhythmia: PVCs Recovery ECG: Return to baseline within 3 minutes of recovery Recovery Arrhythmia: None Clinical Exercise duration: 09:26 min Highest Stage Achieved: Exercise capacity: 10.1 METs Overall Exercise Capacity for Age: Average Stress ECG Conclusion Patient exercised 9:26 on Darío Protocol. Test stopped due to shortness of air. Symptoms: No chest pain Arrhythmias/Ectopy: None ST-T Changes: No significant ECG changes at peak stress Conclusion: Average exercise capacity. Normal GXT. GXT only(no imaging). Test Summary REST . . . . . . . Sitting REST . . . . . . . Standing REST 03:07 0.0 0.0 76 . 107/ 55 . . Stage 1 01:00 10.0 1.7 93 . . . . Stage 1 02:00 10.0 1.7 100 . . . . Stage 1 03:00 10.0 1.7 106 . 130/ 68 . . Stage 2 01:00 12.0 2.5 114 . . . . Stage 2 02:00 12.0 2.5 115 . . . . Stage 2 03:00 12.0 2.5 123 . 136/ 60 . . Stage 3 01:00 14.0 3.4 130 . . . . Stage 3 02:00 14.0 3.4 140 . . . . Stage 3 03:00 14.0 3.4 144 . 154/ 64 . . Stage 4 00:26 16.0 4.2 144 . . . Stop exercise at 09:26 RECOVERY 01:00 0.0 0.0 129 . . . . RECOVERY 02:00 0.0 0.0 107 . 134/ 64 . . RECOVERY 03:00 0.0 0.0 118 . 134/ 64 . . RECOVERY 04:00 0.0 0.0 91 . 143/ 58 . . RECOVERY 05:00 0.0 0.0 90 . 143/ 58 . . RECOVERY 05:37 0.0 0.0 99 . 113/ 62 . . Electronically signed by : Theresa Perez MD 11/29/2023 14:57:37
--- NOTE | 2023-11-28 13:38 | CA_ITS ---
APPROVED REPORT EXAM: Comprehensive 2D, Doppler, and color-flow Echocardiogram Risk Control Analyst: Latanya France, RCS, RVS Ht: 5 ft 9 in Wt: 132lbs BSA: 1.73 BP: 109/44 mmHg Indications: murmur, Smoker, Dyspnea, gutierrez 2D Dimensions IVSd 0.78 cm F: 0.6-1.0 LVEF (Visual) 64.80 % PWd 0.77 cm F: 0.6 - 1.0 LA Volume 30.00 mL LVDd 4.11 cm F: 3.9 - 5.3 LA Volume Index [id number] mL/m2 (M/F) 16-34 LVDs 2.67 cm F: 2.2 - 3.5 Left Atrium 2.32 cm F: 2.7 - 3.8 M-Mode Dimensions RVDd 1.45 cm (0.9-2.6) LA Diam 2.64 cm (1.9-4.0) LVDd 4.88 cm (3.5-5.7) LVDs 3.42 cm (3.5-5.7) IVSd 0.78 cm (0.6-1.1) PWd 0.75 cm (0.6-1.1) EF (Teich) 56.90% EPSs 0.51 cm FS 29.90% EDV (Teich) 111.70 mL TAPSE 2.55 (<1.7) ESV (Teich) 48.10 mL LV Diastology E Decel Time 177 (160-240 msec) E/A Ratio 1.13 MED A' 12.80 cm/s LAT A' 10.80 cm/s Aortic Valve JAVIER Index 1.31 cm2/m2 AoV Peak Leo. 122.0 (50-130 cm/s) AO Peak GR. 6.00 mmHg AO Mean GR. 3.00 (<5 mmHg) AO VTI 24.9 (18-25 cm) JAVIER (VTI) 2.31 (2.5-4.5 cm2) Mitral Valve MV A Velocity 62.0 (40-130 cm/s) E/A Ratio 1.13 Pulmonary Valve PV Peak Velocity 120.0 (50-150 cm/s) Tricuspid Valve TR P. Velocity 239.00 cm/s RAP Estimate 10.00 mmHg RVSP 32.80 mmHg Left Ventricle The left ventricle is normal size. The left ventricular systolic function is normal. The left ventricular ejection fraction is within the normal range. There is normal left ventricular wall thickness. There is normal LV segmental wall motion. The left ventricular diastolic function is normal. LVEF is 55%. Right Ventricle The right ventricle is normal size. The right ventricular systolic function is normal. Atria The left atrium size is normal. The right atrium size is normal. There is no Doppler evidence of interatrial shunt. Aortic Valve The aortic valve opens well. The aortic valve is trileaflet. There is no aortic valvular stenosis. No aortic regurgitation is present. Mitral Valve The mitral valve is normal in structure. No evidence of mitral valve stenosis. There is no mitral valve regurgitation noted. Tricuspid Valve Tricuspid valve leaflets are thin and pliable. Mild tricuspid regurgitation. RVSP is 20-25 mmHg. Pulmonic Valve The pulmonary valve is normal in structure. Trace pulmonic regurgitation. Great Vessels The aortic root is normal in size. The ascending aorta is not well-visualized. IVC is normal in size and collapses >50% with inspiration. Pericardium There is no pericardial effusion. Other Information Study Quality: Adequate Conclusion Normal biventricular systolic function. Mild TR. Electronically signed by : Theresa Perez MD 12/02/2023 23:14:39
== END 2023-11-28 23:59 | disposition home or self-care (01) ==
LOC: RT 13:38
PROVIDERS: PCP Internal Medicine; Visit Provider Physician Assistant
DX: R01.1 Cardiac murmur, unspecified (principal); R09.89 Other specified symptoms and signs involving the circulatory and respiratory systems; Z72.0 Tobacco use
CPT/HCPCS: 93017; 93018; 93306; 93880